=== PATIENT | female | born 1960 | race Caucasian/White ===

== ENCOUNTER 2023-02-15 15:17 | Emergency (ER) | payer BC, SELFPAY ==
[2023-02-15 15:18] VITALS: BP 161/92; PULSE 82; RESP 18; TEMP 36.8; O2SAT 97; BMI 35.5
--- NOTE | 2023-02-15 15:28 | XR_ITS ---
FINAL REPORT CLINICAL HISTORY: fall, right forearm pain COMPARISON: None FINDINGS: 2 views of the right forearm were obtained. There is no acute fracture or dislocation. The joints are intact. There are no soft tissue abnormalities. IMPRESSION: No acute process. Reviewed, Interpreted and Dictated by Jasen Hui MD Transcribed by Teri Last Authenticated and [facility]
--- NOTE | 2023-02-15 15:28 | XR_ITS ---
FINAL REPORT CLINICAL HISTORY: fall, right elbow pain COMPARISON: None FINDINGS: RIGHT ELBOW 3 views were obtained. There is no acute fracture or dislocation. There is no joint effusion. The joint spaces are intact. There is no soft tissue abnormality. IMPRESSION: No acute process. Reviewed, Interpreted and Dictated by Jasen Hui MD Transcribed by Teri Last Authenticated and [facility]
--- NOTE | 2023-02-15 15:28 | XR_ITS ---
FINAL REPORT CLINICAL HISTORY: fall, right wrist pain COMPARISON: none FINDINGS: RIGHT WRIST Three views show no evidence of an acute, displaced fracture or dislocation of the visualized bony architecture. The joint spaces appear normal. IMPRESSION: Unremarkable exam. Reviewed, Interpreted and Dictated by Jasen Hui MD Transcribed by Teri Last Authenticated and [facility]
--- NOTE | 2023-02-15 15:28 | XR_ITS ---
FINAL REPORT CLINICAL HISTORY: fall, right hand pain. PAIN AT 5TH DIGIT. COMPARISON: None FINDINGS: Three views show no evidence of acute displaced fracture or dislocation of the visualized bony architecture. Moderate diffuse degenerative changes, most pronounced at the DIP joints. IMPRESSION: No acute process. Reviewed, Interpreted and Dictated by Jasen Hui MD Transcribed by Teri Last Authenticated and [facility]
--- NOTE | 2023-02-15 15:28 | HMH.EDGENADL ---
Discharge Plan Disposition Patient Disposition: Home, Self-Care Condition: Good Prescriptions Prescriptions: New hydrocodone-acetaminophen 5-325 mg tablet 1 tab PO Q8H PRN (Reason: pain) Qty: 12 0RF No Action triamcinolone acetonide 16.9 ML aerosol,spray 16.9 ml NS DAILY PRN (Reason: allergies) aspirin 81 MG tablet,chewable 81 mg PO DAILY fexofenadine-pseudoephedrine 1 EACH tablet extended release 12 hr 1 each PO DAILY escitalopram oxalate 20 MG tablet 20 mg PO DAILY meloxicam 7.5 MG tablet 15 mg PO DAILY hydrochlorothiazide 25 MG tablet 12.5 mg PO DAILY esomeprazole magnesium 20 MG capsule,delayed release(DR/EC) 20 mg PO BID Referrals Follow up/Referrals: David Zavala DO [Staff Physician] - See instructions Yuliana Larson APRN [Primary Care Provider] - See instructions Activity Restrictions/Add. Instructions Additional Instructions/Restrictions: You were evaluated in the emergency department today. Please follow-up closely with orthopedics. I am providing you with information for Dr. Zavala. You will need to call his office to schedule an appointment. Keep your splint on, clean, and dry. Elevate and ice your arm to reduce swelling. 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 Do not drive or operate heavy machinery. Return to the emergency department for any new or worsening symptoms. [facility] Physician Office Building [address] [place] [address] Clinical Impressions Clinical Impression: Fracture of proximal phalanx of little finger Qualifiers: Encounter type: initial encounter Fracture type: closed Laterality: right Instructions Patient Instructions: DI for Finger Fracture, How to Take Care of Your Splint Discharge ED Provider: eRanna Toure General Adult HPI General Chief complaint: PAIN Stated complaint: [id number] Back and LT finger inj Time Seen by Provider: 02/15/23 15:20 History of Present Illness HPI narrative: This patient is a 63-year-old female presented to the emergency department for evaluation after a mechanical fall. She reports that she was cleaning her deck when she was stepping off, stepped on a wet patch, and then slid down. She fell into a small area beside the deck. She did not hit her head or lose consciousness. She has been ambulatory since. She states that initially, she thought she was fine, however she has had progressive pain that is worsening in her right hand and forearm. She also complains of some back pain at the site of superficial abrasions, but she denies any significant midline pain or other concerns. She is ambulatory. She denies any numbness, tingling, weakness, or other issues. She does not take any blood thinners. Related Data Home Medications Medication Instructions Recorded Confirmed esomeprazole magnesium 20 mg 20 mg PO BID stomach 05/08/18 12/15/20 capsule,delayed release hydrochlorothiazide 25 mg tablet 12.5 mg PO DAILY Fluid 05/08/18 12/15/20 meloxicam 7.5 mg tablet 15 mg PO DAILY Arthritis 05/08/18 12/15/20 aspirin 81 mg chewable tablet 81 mg PO DAILY post op TKR 12/15/20 12/15/20 escitalopram oxalate 20 mg tablet 20 mg PO DAILY Depression 12/15/20 12/15/20 fexofenadine 60 mg-pseudoephedrine 1 each PO DAILY ALLERGIES 12/15/20 12/15/20 ER 120 mg tablet,ext.release,12 hr triamcinolone acetonide 55 mcg 16.9 ml NS DAILY PRN allergies 12/15/20 12/15/20 nasal spray aerosol Previous Rx's Medication Instructions Recorded hydrocodone 5 mg-acetaminophen 325 1 tab PO Q8H PRN pain #12 tabs 02/15/23 mg tablet Allergies Allergy/AdvReac Type Severity Reaction Status Date / Time erythromycin base Allergy Verified 12/15/20 13:13 [facility] Disclaimer: The information contained in this section may have been updated after the patient was seen, as this information can be updated by other users. So
[2023-02-15 15:31] VITALS: BP 161/92; PULSE 89; RESP 20; O2SAT 97
[2023-02-15 16:00] VITALS: BP 149/88; PULSE 72; RESP 18; O2SAT 97
[2023-02-15 16:30] VITALS: BP 126/89; PULSE 72; RESP 18; O2SAT 97
[2023-02-15 17:00] VITALS: BP 140/87
--- NOTE | 2023-02-15 17:14 | XR_ITS ---
PROCEDURE INFORMATION: Exam: XR Right Hand Exam date and time: 02/15/2023 5:09 PM Age: 63 years old Clinical indication: Pain; Hand; Right; Additional info: 5th digit dislocated on clinical exam, reduced TECHNIQUE: Imaging protocol: Radiologic exam of the right hand. Views: 3 or more views. COMPARISON: CR XR HAND RT MIN 3V 02/15/2023 3:24 PM FINDINGS: Bones/joints: Acute oblique fracture through the proximal diametaphysis of the 5th proximal phalanx. Moderate to severe degenerative change of the 2nd, 3rd, 4th and 5th distal interphalangeal joints. Soft tissues: Soft tissue swelling. IMPRESSION: Acute oblique fracture through the proximal diametaphysis of the 5th proximal phalanx.
[2023-02-15 17:54] VITALS: BP 142/84; PULSE 74; RESP 18; TEMP 37.1
== END 2023-02-15 18:02 | disposition home or self-care (01) ==
PROVIDERS: Emergency Provider Emergency Medicine; PCP Nurse Practitioner Family
DX: S62.616A Displaced fracture of proximal phalanx of right little finger, initial encounter for closed fracture (principal); W17.89XA Other fall from one level to another, initial encounter
CPT/HCPCS: 29125; 73080; 73090; 73110; 73130; 96372; 99284

== ENCOUNTER → 2023-02-20 09:07 | Outpatient (CLI) | payer BC, SELFPAY ==
--- NOTE | 2023-02-20 09:11 | XR_ITS ---
FINAL REPORT CLINICAL HISTORY: right hand fx COMPARISON: 02/15/2023 FINDINGS: RIGHT HAND SERIES Three views of the right hand were obtained. There is a nondisplaced oblique fracture of the proximal aspect of the fifth proximal phalanx. There is a questionable nondisplaced fracture of the head of the third metacarpal. The other bony alignment is stable. There are mild and moderate degenerative changes, with the greatest at the second and third distal interphalangeal joints. There is dorsal hand soft tissue swelling. IMPRESSION: Nondisplaced fracture of the proximal aspect of the fifth proximal phalanx. Questionable nondisplaced fracture of the head of the third metacarpal. Follow-up radiographs are recommended. Mild and moderate degenerative changes as stated above. Dorsal hand soft tissue swelling. Reviewed, Interpreted and Dictated by Davidson Cisneros III, MD Transcribed by Caity Mata Authenticated and [facility]
== END ==
PROVIDERS: PCP Nurse Practitioner Family; Visit Provider Orthopaedic Surgery
DX: M79.641 Pain in right hand (principal); S62.618A Displaced fracture of proximal phalanx of other finger, initial encounter for closed fracture
CPT/HCPCS: 73130

== ENCOUNTER → 2023-03-08 12:48 | Outpatient (CLI) | payer BC, SELFPAY ==
--- NOTE | 2023-03-08 12:51 | XR_ITS ---
FINAL REPORT CLINICAL HISTORY: Rt hand pain COMPARISON: 02/20/2023 FINDINGS: LEFT HAND: 3 views of the left hand were obtained. There is a subacute fracture of the proximal fifth proximal phalanx. Bony alignment has not significantly changed from prior. There is mild and moderate degenerative change. No new bony abnormality identified. Visualized joint spaces are normally aligned. Soft tissues are unremarkable. IMPRESSION: No significant change fifth proximal phalanx fracture. Reviewed, Interpreted and Dictated by Davidson Cisneros III, MD Transcribed by Teri Last Authenticated and [facility]
== END ==
PROVIDERS: PCP Nurse Practitioner Family; Visit Provider Orthopaedic Surgery
DX: S62.616A Displaced fracture of proximal phalanx of right little finger, initial encounter for closed fracture (principal)
CPT/HCPCS: 73130

== ENCOUNTER 2024-01-15 13:02 | Emergency (ER) | payer BC, SELFPAY ==
[2024-01-15 13:12] VITALS: BP 167/113; PULSE 83; RESP 20; TEMP 36.7; O2SAT 97; BMI 34.3
[2024-01-15 13:30] VITALS: BP 128/75; PULSE 94; O2SAT 98
--- NOTE | 2024-01-15 13:45 | PC.NURSE ---
DR ELIAS AT BEDSIDE
--- NOTE | 2024-01-15 13:50 | CT_ITS ---
FINAL REPORT TECHNIQUE: Multiple axial CT sections were performed through the face without IV contrast. Coronal reconstruction images were performed. This study was performed with techniques to keep radiation doses as low as reasonably achievable (ALARA). Individualized dose reduction techniques using automated exposure control or adjustment of mA and/or kV according to the patient's size were employed. CLINICAL HISTORY: horse related injury FINDINGS: There is an age indeterminate nondisplaced fracture of the nasal process of the maxilla well seen on sagittal images 51-53, favor chronic. No other facial fracture is identified. The TMJs are intact. The paranasal sinuses are well aerated. IMPRESSION: Age indeterminate nondisplaced fracture as above. Reviewed, Interpreted and Dictated by Jasen Hui MD Transcribed by Marisol Decker Authenticated and [facility]
--- NOTE | 2024-01-15 13:50 | CT_ITS ---
FINAL REPORT TECHNIQUE: Axial images were obtained of the cervical spine by computed tomography. Coronal and sagittal reconstruction process performed. This study was performed with techniques to keep radiation doses as low as reasonably achievable (ALARA). Individualized dose reduction techniques using automated exposure control or adjustment of mA and/or kV according to the patient''s size were employed. CLINICAL HISTORY: horse related injury FINDINGS: There are moderate diffuse degenerative changes, most pronounced at C5-6 with canal stenosis and neural foraminal narrowing. No acute fracture is identified. IMPRESSION: No acute fracture. Reviewed, Interpreted and Dictated by Jasen Hui MD Transcribed by Marisol Decker Authenticated and [facility]
--- NOTE | 2024-01-15 13:50 | CT_ITS ---
FINAL REPORT TECHNIQUE: Axial imaging of the head was obtained without contrast. This study was performed with techniques to keep radiation doses as low as reasonably achievable, (ALARA). Individualized dose reduction techniques using automated exposure control or adjustment of mA and/or kV according to the patient's size were employed. CLINICAL HISTORY: horse related injury FINDINGS: No abnormal density is seen. Ventricles are normal. There is no hemorrhage. No mass effect is seen. Bone windows show no evidence of fracture. IMPRESSION: No acute findings. Reviewed, Interpreted and Dictated by Jasen Hui MD Transcribed by Marisol Decker Authenticated and [facility]
--- NOTE | 2024-01-15 13:53 | HMH.EDGENADL ---
Discharge Plan Disposition Patient Disposition: Home, Self-Care Prescriptions Prescriptions: No Action omeprazole 20 mg capsule,delayed release(DR/EC) 20 mg PO Patient Comments: TAKE 1 CAPSULE BY MOUTH EVERY MORNING hydrochlorothiazide 12.5 mg tablet 12.5 mg PO Patient Comments: TAKE 1 TABLET BY MOUTH EVERY DAY IN THE MORNING escitalopram oxalate 20 MG tablet 20 mg PO DAILY meloxicam 7.5 MG tablet 15 mg PO DAILY Referrals Follow up/Referrals: Linda Bunch APRN [Primary Care Provider] - See instructions Activity Restrictions/Add. Instructions Additional Instructions/Restrictions: At this time it was felt you are safe to be discharged home. If new or worsening symptoms please do not hesitate to return the emergency department. If symptoms persist in 10 days please follow-up with your family doctor for continued evaluation and possible referral to a facial surgeon although this will likely heal on its own. Clinical Impressions Clinical Impression: Concussion, Periorbital ecchymosis of left eye, Cervical muscle strain, Maxillary fracture with delayed healing Stand Alone Forms Stand Alone Forms: Work/School Release Instructions Patient Instructions: DI for Concussion Discharge ED Provider: Hector Arango General Adult HPI <Hector Arango MD - Last Filed: 01/15/24 13:57> General Chief complaint: PAIN Stated complaint: AO-pain, swelling, bruising to L eye, moving to R Time Seen by Provider: 01/15/24 13:44 Mode of Arrival: Ambulatory Source of Information: Patient Limitations: No Limitations Description of Symptoms (Recalled from ER Triage Doc. by RN): Pt reported to ED with c/o of left eye brusing in swelling. Pt states yesterday a horse head-butted her. Pt states no LOC but did have dizziness, confusing, headache, and nausea. Pt states she is still dizzy and still has intermittent nausea. Pt describes the pain as a throbbing pain rated as 6 out of 10. Pt states having slight blurriness in both eyes. History of Present Illness HPI narrative: Patient is a 63-year-old female presenting today with a head injury. Patient states that a horse that she was working with head butted her. She states she immediately felt dizzy like she had her acevedo rung and was concussed. However she got better throughout the evening was with her grandkids and states that she just did not have time to come get evaluated. She is not on any anticoagulants or blood thinners. Has had increasing ecchymosis around her left eye. Also complains of some mild neck discomfort. Related Data Home Medications Medication Instructions Recorded Confirmed meloxicam 7.5 mg tablet 15 mg PO DAILY Arthritis 05/08/18 03/08/23 escitalopram oxalate 20 mg tablet 20 mg PO DAILY Depression 12/15/20 03/08/23 hydrochlorothiazide 12.5 mg tablet 12.5 mg PO 02/20/23 03/08/23 omeprazole 20 mg capsule,delayed 20 mg PO 02/20/23 03/08/23 release Allergies Allergy/AdvReac Type Severity Reaction Status Date / Time erythromycin base Allergy Verified 03/08/23 13:09 [facility] <Hector Arango MD - Last Filed: 01/15/24 13:57> [facility] Disclaimer: The information contained in this section may have been updated after the patient was seen, as this information can be updated by other users. Surgical History H/O total knee replacement History of partial knee replacement Social History Smoking Status: Never smoker alcohol intake: never current occupational status: employed Travel in the last 8 weeks: None caffeine: Yes <Brando Najera MD - Last Filed: 01/15/24 18:39> ROS Obtained: Yes Systems reviewed as appropriate & no additional complaints except as documented Physical Exam <Hector Arango MD - Last Filed: 01/15/24 13:57> Head Head exam: other (There is left Keegan orbital ecchymosis no step-offs or deformities in the bone itself no evidence of depressed skull fracture vital sign or bilateral raccoon eyes) Neck Neck exam: Present tenderness (Primarily paraspinal muscular tenderness but there is some midline spinal tenderness) Neurological Exam Neurological exam: Present alert, oriented X3 and CN II-XII intact; Absent normal gait or motor sensory deficit <Brando Najera MD - Last Filed: 01/15/24 18:39> General General appearance: alert Eye Eye exam: Present PERRL and EOMI ENT ENT exam: Present mucous membranes moist Chest Chest inspection: Present normal inspection and symmetric chest wall rise Respiratory Respiratory exam: Absent respiratory distress Cardiovascular Cardiovascular exam: Present regular rate and normal rhythm Abdominal Exam Abdominal exam: Present soft Extremities Exam Extremities exam: Present normal inspection Psychiatric Psychiatric exam: Present normal affect Skin Skin exam: Present warm and dry Medical Decision Making <Hector Arango MD - Last Filed: 01/15/24 13:57> Vital Signs: 01/15/24 13:12 01/15/24 13:30 01/15/24 14:00 Temperature 98.1 F Temperature Source Oral Pulse Rate 94 H 75 Pulse Rate [Left Radial] 83 Respiratory Rate 20 Blood Pressure 128/75 149/92 H Blood Pressure [Right Arm] 167/113 H Blood Pressure Mean 92 110 Blood Pressure Mean [Right Arm] 131 02 Sat by Pulse Oximetry 97 98 96 Oxygen Delivery Method Room Air 01/15/24 14:30 01/15/24 15:00 01/15/24 15:55 Temperature 98.0 F Temperature Source Pulse Rate 72 73 71 Pulse Rate [Left Radial] Respiratory Rate 17 Blood Pressure 152/91 H 145/88 H 149/93 H Blood Pressure [Right Arm] Blood Pressure Mean Blood Pressure Mean [Right Arm] 02 Sat by Pulse Oximetry 99 97 Oxygen Delivery Method Room Air Room Air Room Air Orders (Tests/Meds): ED MEDICATIONS Discontinued Medications Generic Name Dose Route Start Last Admin Trade Name Freq PRN Reason Stop Dose Admin Acetaminophen 1,000 mg 01/15/24 13:50 01/15/24 14:07 Acetaminophen 500mg Tab PO 01/15/24 13:51 1,000 mg ONCE ONE Administration ORDERS Category Date Time Status CT cervical spine wo con Stat Cat Scan 01/15/24 13:[address] facial bones wo con Stat Cat Scan 01/15/24 13:[address] head/brain wo con Stat Cat Scan 01/15/24 13:50 Completed Medical Decision Narrative: 63-year-old GCS of 15 normal neurologic exam presents today with above history and physical. It is very unlikely that there is a injury that require any type of surgical intervention. However given her age radiation exposure risk is low and we will get a CT scan to rule out any type of skull fracture intracranial hemorrhaging cervical spine fracture etc. CT scan of the head face cervical spine been ordered Tylenol has been administered will reassess. Of note patient did have a clinical concussion and we have discussed return to activity precautions. <Brando Najera MD - Last Filed: 01/15/24 18:39> Vahid Inquiry Pt receiving controlled substance: No Vital Signs: 01/15/24 13:12 01/15/24 13:30 01/15/24 14:00 Temperature 98.1 F Temperature Source Oral Pulse Rate 94 H 75 Pulse Rate [Left Radial] 83 Respiratory Rate 20 Blood Pressure 128/75 149/92 H Blood Pressure [Right Arm] 167/113 H Blood Pressure Mean 92 110 Blood Pressure Mean [Right Arm] 131 02 Sat by Pulse Oximetry 97 98 96 Oxygen Delivery Method Room Air 01/15/24 14:30 01/15/24 15:00 01/15/24 15:55 Temperature 98.0 F Temperature Source Pulse Rate 72 73 71 Pulse Rate [Left Radial] Respiratory Rate 17 Blood Pressure 152/91 H 145/88 H 149/93 H Blood Pressure [Right Arm] Blood Pressure Mean Blood Pressure Mean [Right Arm] 02 Sat by Pulse Oximetry 99 97 Oxygen Delivery Method Room Air Room Air Room Air Orders (Tests/Meds): ED MEDICATIONS Discontinued Medications Generic Name Dose Route Start Last Admin Trade Name Brownq PRN Reason Stop Dose Admin Acetaminophen 1,000 mg 01/15/24 13:50 01/15/24 14:07 Acetaminophen 500mg Tab PO 01/15/24 13:51 1,000 mg ONCE ONE Administration ORDERS Category Date Time Status CT cervical spine wo con Stat Cat Scan 01/15/24 13:[address] facial bones wo con Stat Cat Scan 01/15/24 13:[address] head/brain wo con Stat Cat Scan 01/15/24 13:50 Completed Medical Decision Narrative: 63-year-old GCS of 15 normal neurologic exam presents today with above history and physical. It is very unlikely that there is a injury that require any type of surgical intervention. However given her age radiation exposure risk is low and we will get a CT scan to rule out any type of skull fracture intracranial hemorrhaging cervical spine fracture etc. CT scan of the head face cervical spine been ordered Tylenol has been administered will reassess. Of note patient did have a clinical concussion and we have discussed return to activity precautions. Brando Najera: Upon assumption of care patient was hemodynamically stable. CT imaging reviewed by me, patient has an indeterminate nondisplaced fracture of the nasal process of the maxilla. No other facial fracture identified. Upon repeat evaluation patient was well-appearing, has periorbital ecchymosis on the left without evidence of exophthalmos. Given that she has an isolated maxillary process fracture no concern for unstable midface fracture. Management is conservative. This was relayed to the patient and if she has persistent pain after swelling goes down she can be referred to outpatient facial surgeon and was given return precautions. Patient is appropriate for discharge at this time. Critical Care <Brando Najera MD - Last Filed: 01/15/24 18:39> Critical Care Time Critical Care Time: No
[2024-01-15 14:00] VITALS: BP 149/92; PULSE 75; O2SAT 96
[2024-01-15] MEDS: ACETAMINOPHEN 500MG TAB 1000 MG PO (14:07)
--- NOTE | 2024-01-15 14:17 | PC.NURSE ---
PT gone to RAD via wheelchair
--- NOTE | 2024-01-15 14:29 | PC.NURSE ---
Pt returned from RAD
[2024-01-15 14:30] VITALS: BP 152/91; PULSE 72; O2SAT 99
[2024-01-15 15:00] VITALS: BP 145/88; PULSE 73; O2SAT 97
[2024-01-15 15:55] VITALS: BP 149/93; PULSE 71; RESP 17; TEMP 36.7; O2SAT 98
== END 2024-01-15 15:58 | disposition home or self-care (01) ==
PROVIDERS: Emergency Provider Student in an Organized Health Care Education/Training Program; PCP Nurse Practitioner Family
DX: S06.0X0A Concussion without loss of consciousness, initial encounter (principal); S02.2XXA Fracture of nasal bones, initial encounter for closed fracture; S00.12XA Contusion of left eyelid and periocular area, initial encounter; S16.1XXA Strain of muscle, fascia and tendon at neck level, initial encounter; W55.12XA Struck by horse, initial encounter
CPT/HCPCS: 70450; 70486; 72125; 99285